=== PATIENT | male | born 1960 | race Caucasian/White ===

== ENCOUNTER 2018-01-09 18:24 | Emergency (ER) | END 2018-01-10 00:24 | disposition home or self-care (01) ==

== ENCOUNTER 2018-02-09 13:44 | Emergency (ER) | END 2018-02-09 18:57 | disposition home or self-care (01) ==

== ENCOUNTER 2018-10-24 12:36 | Emergency (ER) | payer BC ==
[~2018-10-24] VITALS: Ht 170.2 cm; Wt 80.0 kg
[~2018-10-24 12:36] MED LIST: CHLO25CA9 PO; ELVI1TAB2 PO; SERT50TA PO
[2018-10-24 12:39] VITALS: Ht 170.2 cm; Wt 80.0 kg
[2018-10-24] MEDS ORDERED: SOD CHLORIDE 0.9% 1,000 ML IV STA (13:27)
[2018-10-24] MEDS ORDERED: LORAZEPAM 2 MG INJ IV STA (13:27)
[2018-10-24] MEDS ORDERED: THIAMINE 100 MG TAB PO ONE (13:30)
[2018-10-24] MEDS ORDERED: FOLIC ACID 1 MG TAB PO ONE (13:30)
[2018-10-24] MEDS ORDERED: CHLORDIAZEPOXIDE 25 MG CAP PO ONE (13:30)
[2018-10-24 14:38] VITALS: BP 140/60; PULSE 85; RESP 20
== END 2018-10-24 14:44 | disposition home or self-care (01) ==
LOC: E/R 12:36
DX: F10.230 Alcohol dependence with withdrawal, uncomplicated (principal); R40.2142 Coma scale, eyes open, spontaneous, at arrival to emergency department; R40.2362 Coma scale, best motor response, obeys commands, at arrival to emergency department; R40.2252 Coma scale, best verbal response, oriented, at arrival to emergency department; J45.909 Unspecified asthma, uncomplicated; F17.210 Nicotine dependence, cigarettes, uncomplicated; Z21 Asymptomatic human immunodeficiency virus [HIV] infection status
CPT/HCPCS: 96361; 96374; 99284; J2060; J7030